=== PATIENT | female | born 1960 | race Two or more races ===

== ENCOUNTER → 2017-03-08 | Outpatient (CLI) | payer OTHER ==
--- NOTE | 2017-03-08 08:16 | MM ---
Reason for exam: clinical finding. Last mammogram was performed 1 year ago. History: Patient is postmenopausal and has history of other cancer at age 55. Retro-pectoral silicone gel implants in both breasts, 1986. Physical Findings: Nurse did not find any significant physical abnormalities on exam. MG 3D Diag Mammo Imp W/Cad TIMBO Bilateral CC, MLO, and ID view(s) were taken. Prior study comparison: March 05, 2016, bilateral MG 3d diag mammo imp w/cad TIMBO. January 17, 2013, mammogram, performed at [facility]. The breast tissue is heterogeneously dense. This may lower the sensitivity of mammography. There is chronic nodularity bilaterally. There is no dominant lesion. Implants are intact. No significant new findings when compared with previous films. These results were verbally communicated with the patient and result sheet given to the patient on 03/08/17. ASSESSMENT: Benign, BI-RAD 2 RECOMMENDATION: Routine screening mammogram of both breasts in 1 year.
== END ==
LOC: RADMAMWWP 07:18
PROVIDERS: ATTEND Family Medicine
DX: N64.4 Mastodynia (principal)
CPT/HCPCS: G0204; G0279

== ENCOUNTER → 2018-03-11 | Outpatient (CLI) | payer OTHER ==
--- NOTE | 2018-03-13 09:59 | MM ---
Reason for exam: screening (asymptomatic). Last mammogram was performed 1 year ago. History: Patient is postmenopausal and has history of other cancer at age 55. Retro-pectoral silicone gel implants in both breasts, 1986. Physical Findings: A clinical breast exam by your physician is recommended on an annual basis and results should be correlated with mammographic findings. MG 3D Screen Mammo Imp/Cad Bilateral CC, MLO, and ID view(s) were taken. Prior study comparison: March 08, 2017, bilateral MG 3d diag mammo imp w/cad TIMBO. March 05, 2016, bilateral MG 3d diag mammo imp w/cad TIMBO. The breast tissue is heterogeneously dense. This may lower the sensitivity of mammography. Bilateral retropectoral silicone implants. No significant changes when compared with prior studies. ASSESSMENT: Incomplete: need additional imaging evaluation, BI-RAD 0 RECOMMENDATION: Ultrasound of the right breast. (targeted to palpable) [facility] will attempt to contact patient to return for ultrasound.
== END | disposition home or self-care (01) ==
LOC: RADMAMWWP 12:38
PROVIDERS: ATTEND Family Medicine
DX: Z12.31 Encounter for screening mammogram for malignant neoplasm of breast (principal)
CPT/HCPCS: 77063; 77067

== ENCOUNTER → 2018-03-17 | Outpatient (CLI) | payer OTHER ==
--- NOTE | 2018-03-18 08:47 | USB ---
Reason for exam: additional evaluation requested from abnormal screening. History: Patient is postmenopausal and has history of other cancer at age 55. Retro-pectoral silicone gel implants in both breasts, 1986. Physical Findings: Nurse did not find any significant physical abnormalities on exam. US Breast Workup Limited RT Right limited breast ultrasound including focal area of concern, retroareolar and axilla demonstrates no cystic or solid lesion seen. No suspicious sonographic finding. These results were verbally communicated with the patient and result sheet given to the patient on 03/17/18. ASSESSMENT: Negative, BI-RAD 1 RECOMMENDATION: Return to routine screening mammogram schedule for both breasts.
== END ==
LOC: RADUSWWP 14:47
PROVIDERS: ATTEND Family Medicine
DX: R92.8 Other abnormal and inconclusive findings on diagnostic imaging of breast (principal)

== ENCOUNTER → 2020-01-15 | Day surgery (SDC) | payer OTHER ==
[2020-01-14 11:59] VITALS: BMI 19.8
[~2020-01-15] MED LIST: DEXAMETHASONE SOD PHOSPHATE 10 MG/ML 1 ML VIAL IV ONE; HYDROmorphone 0.5 MG/0.5 ML SYRINGE IVP PRN; LACTATED RINGERS 1,000 ML IV SCH; LIDOCAINE 1% (10MG/ML) FOR IV START INTRADERMA PRN; ONDANSETRON 4 MG/2 ML VIAL IVP ONE; SCOPOLAMINE 1.5MG/72HR PATCH TRANSDERM ONE
--- NOTE | 2020-01-15 09:18 | HP ---
HISTORY AND PHYSICAL DATE OF SERVICE: 01/15/2020 Marilin Stewart is a 59-year-old patient seen with progressive right knee pain. Options for treatment were discussed, elected to proceed with arthroscopy. Consent was obtained. PAST MEDICAL HISTORY: Hypothyroidism. PAST SURGICAL HISTORY: Hysterectomy, thyroidectomy, lumbar spine surgery. DAILY MEDICATIONS: Levoxyl, progesterone. ALLERGIES: SULFA. SOCIAL HISTORY: She denies tobacco use. PHYSICAL EVALUATION OF THE RIGHT KNEE: Range of motion-3/4 to 90. Mild effusion. Tenderness medial joint line. Positive medial Charlotte's. Ligaments stable. Hip rotation without pain. Distal neurovascular exam is intact. RADIOGRAPHS OF THE RIGHT KNEE: Reveal mild osteoarthritis. Right knee MRI revealed medial meniscal tear. IMPRESSION: 1. Internal derangement, right knee with medial meniscal tear. 2. Hypothyroidism. PLAN: Right knee arthroscopy with partial meniscectomy and debridement. MMODL / IJN: [id number] /
[2020-01-15 16:30] VITALS: BP 141/74; PULSE 88; RESP 16; TEMP 97
== END | disposition home or self-care (01) ==
LOC: OR 15:01
PROVIDERS: ATTEND Orthopaedic Surgery
DX: S83.241A Other tear of medial meniscus, current injury, right knee, initial encounter (principal); X58.XXXA Exposure to other specified factors, initial encounter; U07.1 COVID-19; Z53.8 Procedure and treatment not carried out for other reasons; Z90.710 Acquired absence of both cervix and uterus; E89.0 Postprocedural hypothyroidism; Z98.890 Other specified postprocedural states; Z79.890 Hormone replacement therapy; Z88.2 Allergy status to sulfonamides
CPT/HCPCS: 87635; J1100; J2405

== ENCOUNTER → 2020-02-09 | Outpatient (CLI) | payer OTHER | END | disposition home or self-care (01) | LOC: LABWHC1 09:38 | PROVIDERS: ATTEND Orthopaedic Surgery | DX: Z11.59 Encounter for screening for other viral diseases (principal) ==

== ENCOUNTER 2020-02-11 14:08 | Day surgery (SDC) | payer OTHER ==
[2020-02-10 09:08] VITALS: BMI 19.5
--- NOTE | 2020-02-10 14:19 | HP ---
HISTORY AND PHYSICAL DATE OF SURGERY: 02/11/2020 Marilin Stewart is a 60-year-old patient seen with progressive right knee pain. We discussed options. She elected to proceed with arthroscopy. Consent was obtained. PAST MEDICAL HISTORY: Hypothyroidism. PAST SURGICAL HISTORY: Hysterectomy, thyroidectomy, lumbar spine surgery. DAILY MEDICATIONS: Levoxyl, progesterone. ALLERGIES: SULFA. SOCIAL HISTORY: She denies current tobacco use. PHYSICAL EVALUATION OF RIGHT KNEE: Range of motion is -3/4 to 90, mild effusion, tenderness medial joint line, positive medial Charlotte's, ligaments are stable. Hip rotation without pain. Distal neurovascular exam is intact. RADIOGRAPHS: Radiographs of the right knee reveal mild osteoarthritic changes. MRI of the right knee revealed a medial meniscal tear. IMPRESSION: 1. Internal derangement, right knee with medial meniscal tear. 2. Hypothyroidism. PLAN: Right knee arthroscopy with partial meniscectomy, partial synovectomy and debridement. MMODL / IJN: [id number] /
[~2020-02-11 14:08] MED LIST changes: -LIDOCAINE 1% (10MG/ML) FOR IV START INTRADERMA PRN; -SCOPOLAMINE 1.5MG/72HR PATCH TRANSDERM ONE
[2020-02-11] MEDS ORDERED: LIDOCAINE 1% (10MG/ML) FOR IV START SQ ONE (14:26)
[2020-02-11] MEDS ORDERED: SCOPOLAMINE 1.5MG/72HR PATCH TRANSDERM ONE (14:29)
[2020-02-11] MEDS ORDERED: SUCCINYLCHOLINE CHLORIDE 100 MG/5 ML SYR IV ONE (14:41)
[2020-02-11] MEDS ORDERED: LIDOCAINE 1% INJ 10MG/ML (20 ML MDV) ONE (14:41)
[2020-02-11] MEDS ORDERED: fentaNYL (PF) 50 MCG/ML 2 ML AMP ONE (14:41)
[2020-02-11] MEDS ORDERED: MIDAZOLAM 2 MG/2 ML VIAL ONE (14:41)
[2020-02-11] MEDS ORDERED: PROPOFOL 10 MG/ML 20 ML VIAL IV ONE (14:41)
[2020-02-11] MEDS ORDERED: KETOROLAC 30 MG/ML 1 ML VIAL ONE (14:41)
[2020-02-11] MEDS ORDERED: BUPIVACAINE (PF) 0.25% 30 ML VIAL INTRAARTIC ONE ×2 (14:43→15:23)
[2020-02-11 15:43] VITALS: TEMP 98.1
--- NOTE | 2020-02-11 15:45 | P.OP ---
Date of Procedure: 02/11/20 Preoperative Diagnosis: Internal derangement right knee Postoperative Diagnosis: 1. Complex tear medial meniscus right knee 2. Grade 2/3 chondromalacia medial femoral condyle right knee 3. Reactive synovitis medial, lateral and suprapatellar compartments right knee Procedure(s) Performed: 1. Arthroscopic partial medial meniscectomy right knee 2. Arthroscopic chondroplasty medial femoral condyle right knee 3. Arthroscopic partial synovectomy medial, lateral and suprapatellar compartments right knee Anesthesia: IRISA, local Surgeon: Jona Somers Estimated Blood Loss (ml): 11 Pathology: none sent Condition: stable Disposition: PACU Indications for Procedure: 60-year-old patient seen with progressive right knee pain. After treatment options were discussed, she elected to proceed with arthroscopy. Operative Findings: See description of procedure Description of Procedure: Patient was taken to the operative suite. Patient underwent a general anesthetic by the department of anesthesia. Patient was given preoperative antibiotics. The right lower extremity was placed in a well-padded arthroscopic leg pereira. The right leg was prepped and draped in the normal sterile orthopedic fashion. A lateral parapatellar and suprapatellar incision was made. Trochars were inserted. Arthroscopy was initiated. Suprapatellar pouch revealed diffuse thick reactive synovitis. The patellofemoral joint appeared to articulate congruently. There was grade 1 chondromalacia with no osteochondral tears.. The scope was guided into the medial gutter. No loose bodies or plica were noted. The scope was then guided into the medial compartment. A medial parapatellar incision was made. Trocar inserted followed by probe. There was a complex tear involving the posterior horn of the medial meniscus. There were grade 2/3 chondromalacia changes of the medial femoral condyle with some osteochondral flap tears present. There was thick reactive synovitis anteriorly. I performed a partial medial meniscectomy getting down to stable meniscal tissue. I performed a chondroplasty of the medial femoral condyle getting down to stable osteochondral tissue. I performed a partial synovectomy decompressing the reactive synovitis. The residual meniscus was stable. The residual osteochondral surface was stable. There was good decompression of the synovitis. Scope and probe were then guided into the intercondylar notch. Cruciates were identified, probed and found to be stable. The scope and probe were then guided into lateral compartment. The lateral meniscus was probed and found to be stable. There was no significant chondromalacia present. There was some reactive synovitis anteriorly. I introduced a motorized shaver and performed a partial synovectomy decompressing reactive synovitis. There was go od decompression of the synovitis. The scope was in guided back into the suprapatellar compartment. I introduced a motorized shaver into the suprapatellar compartment. I debrided some piecemeal fragments of meniscus I encountered. I performed a partial synovectomy. The shaver was removed. I took one more look around the entire knee, no residual debris. Instruments were now removed from the joint. The joint was infiltrated with .25% Marcaine. Steri-Strips were applied to the portal sites. Sterile dressings were applied. The patient was placed into a BIRDIE hose. No tourniquet was utilized. The patient was awakened, transferred to a bed and taken to recovery stable satisfactory condition.
[2020-02-11 16:42] VITALS: RESP 16
[2020-02-11 17:49] VITALS: BP 158/82; PULSE 89
== END 2020-02-11 17:46 | disposition home or self-care (01) ==
LOC: OR 14:08
PROVIDERS: ATTEND Orthopaedic Surgery
DX: M23.221 Derangement of posterior horn of medial meniscus due to old tear or injury, right knee (principal); M94.261 Chondromalacia, right knee; M65.861 Other synovitis and tenosynovitis, right lower leg; I10 Essential (primary) hypertension; K51.90 Ulcerative colitis, unspecified, without complications; E89.0 Postprocedural hypothyroidism; Z79.890 Hormone replacement therapy; Z88.2 Allergy status to sulfonamides; Z91.040 Latex allergy status; Z85.850 Personal history of malignant neoplasm of thyroid; Z85.828 Personal history of other malignant neoplasm of skin; Z79.899 Other long term (current) drug therapy; Z90.710 Acquired absence of both cervix and uterus; Z98.890 Other specified postprocedural states
CPT/HCPCS: 29881; J2250; J1100; J2405; J0690; J2001; J3010; J1885; J0330; J2704

== ENCOUNTER → 2020-10-03 | Outpatient (CLI) | payer OTHER ==
--- NOTE | 2020-10-04 12:27 | MM ---
Reason for exam: screening (asymptomatic). Last mammogram was performed 2 years and 7 months ago. History: Patient is postmenopausal and has history of other cancer at age 55. Retro-pectoral silicone gel implants in both breasts, 1986. Physical Findings: A clinical breast exam by your physician is recommended on an annual basis and results should be correlated with mammographic findings. MG 3D Screen Mammo Imp/Cad Bilateral CC, MLO, and ID view(s) were taken. Prior study comparison: March 11, 2018, bilateral MG 3d screen mammo imp/cad. March 08, 2017, bilateral MG 3d diag mammo imp w/cad TIMBO. March 05, 2016, bilateral MG 3d diag mammo imp w/cad TIMBO. The breast tissue is heterogeneously dense. This may lower the sensitivity of mammography. Retropectoral silicone implants. No significant changes when compared with prior studies. ASSESSMENT: Negative, BI-RAD 1 RECOMMENDATION: Routine screening mammogram of both breasts in 1 year.
== END | disposition home or self-care (01) ==
LOC: RADMAMWWP 15:00
PROVIDERS: ATTEND Obstetrics & Gynecology
DX: Z12.31 Encounter for screening mammogram for malignant neoplasm of breast (principal)
CPT/HCPCS: 77063; 77067

== ENCOUNTER → 2021-07-03 | Outpatient (CLI) | payer OTHER ==
--- NOTE | 2021-07-03 13:31 | US ---
EXAMINATION TYPE: US thyroid st tissue head/neck DATE OF EXAM: 07/03/2021 COMPARISON: EXAMINATION TYPE: US thyroid st tissue head/neck DATE OF EXAM: 07/03/2021 COMPARISON: NONE CLINICAL HISTORY: R59.9 Enlarged lymph nodes, unspecified. Thyroidectomy, History of thyroid cancer, Right neck mass felt by physician Right Neck: palpable area lymph nodes seen, 1. 1.4 x 1.1 x 0.6cm, 2. 1.4 x 0.9 x 0.6 cm. Left Neck: no mass seen. Mid Neck/Thyroid fossa: no mass seen. IMPRESSION: 1. Total thyroidectomy change. 2. Lymph nodes as noted.
== END | disposition home or self-care (01) ==
LOC: RADUSWWP 12:50
PROVIDERS: ATTEND Family Medicine
DX: R59.0 Localized enlarged lymph nodes (principal); Z85.850 Personal history of malignant neoplasm of thyroid
CPT/HCPCS: 76536

== ENCOUNTER → 2024-02-20 | Outpatient (CLI) | payer BC ==
--- NOTE | 2024-02-20 14:00 | CT ---
EXAMINATION TYPE: CT soft tissue neck w con DATE OF EXAM: 02/20/2024 9:10 AM COMPARISON: 06/29/2015 HISTORY: right sided neck lump CT DLP: 274 mGycm Automated exposure control for dose reduction was used. CONTRAST: CT scan of the neck is performed following with IV Contrast, patient injected with 100 mL of Isovue 3 00. Axial images are obtained, coronal and sagittal reformatted images are reviewed. FINDINGS: There are no supraclavicular lymph nodes. There is surgical absence of the thyroid gland. The larynx including the cricoid, arytenoid and thyroid cartilages as well as the vocal cords are nor mal and symmetric. The tongue base, epiglottis, aryepiglottic folds, piriform sinuses and vallecula are normal and symme tric. The parotid and submandibular glands are normal and symmetric without focal mass or gross enlargement . There is no pharyngeal or parapharyngeal soft tissue mass or enhancement The great vessels of the neck are normal. There is no lymphadenopathy. There is no soft tissue swelling, inflammation or abscess. Beneath the BB marker there is no mass or fluid collection Mild chronic inflammatory changes in the right maxillary sinus. IMPRESSION: 1. No neck mass or adenopathy 2. Chronic inflammatory change in the right maxillary sinus. 3. Thyroidectomy
== END | disposition home or self-care (01) ==
LOC: RADCTMAIN 08:47
PROVIDERS: ATTEND Otolaryngology
DX: J34.89 Other specified disorders of nose and nasal sinuses (principal); R22.1 Localized swelling, mass and lump, neck; E89.0 Postprocedural hypothyroidism; D49.0 Neoplasm of unspecified behavior of digestive system
CPT/HCPCS: 70491; Q9967

== ENCOUNTER → 2025-03-05 | Outpatient (CLI) | payer BC ==
--- NOTE | 2025-03-05 09:31 | MM ---
Reason for Exam: Screening (asymptomatic). Last mammogram was performed 4 year(s) and 5 month(s) ago. Patient History: Menarche at age 13. First Full-Term at age 24. Left ovary removed at age 52. Right ovary removed at age 52. Hysterectomy at age 52. Postmenopausal. Other cancer, age 55. Currently using Estrogen, starting at age 52. 10/10/2024, Bilateral Implant Removal. 1986, Bilateral Implants. Risk Values: Rayna 5 year model risk: 1.5%. NCI Lifetime model risk: 6.6%. Prior Study Comparison: 03/08/2017 Bilateral Diagnostic Mammogram, [facility]. 03/11/2018 Bilateral Screening Mammogram, [facility]. 10/03/2020 Bilateral Screening Mammogram, [facility]. Tissue Density: There are scattered areas of fibroglandular density. Findings: Analyzed By CAD. Bilateral breast implants appear intact. Right breast: There is no suspicious group of microcalcifications or new suspicious mass. Left breast: There is no suspicious group of microcalcifications or new suspicious mass. Overall Assessment: Negative, BI-RAD 1 Management: Screening Mammogram of both breasts in [address] [facility] will attempt to contact patient to return for supplemental views and ultrasound if indicated. Patient should continue monthly self-breast exams. A clinical breast exam by your physician is recommended on an annual basis. This exam should not preclude additional follow-up of suspicious palpable abnormalities. Note on Rayna scores and lifetime risk: 1. A Rayna score greater than 3% is considered moderate risk. If this is the case, consider specialist referral to assess eligibility for a risk reducing agent. 2. If overall lifetime risk for the development of breast cancer is 20% or higher, the patient may qualify for future screening with alternating mammogram and breast MRI. [facility], , 03/05/2025 9:27 AM. Electronically signed and approved by: Jae Figueredo DO
== END | disposition home or self-care (01) ==
LOC: RADMAMWWP 08:41
PROVIDERS: ATTEND Internal Medicine
DX: Z12.31 Encounter for screening mammogram for malignant neoplasm of breast (principal); R92.323 Mammographic fibroglandular density, bilateral breasts; Z98.82 Breast implant status; Z78.0 Asymptomatic menopausal state
CPT/HCPCS: 77063; 77067